=== PATIENT | female | born 1995 | race Caucasian/White ===

== ENCOUNTER 2022-05-05 08:56 | Emergency (ER) | payer OTHER ==
--- NOTE | 2022-05-05 09:37 | ED ---
General Adult HPI - General Chief complaint: Headache Stated complaint: head pressure, sore throat Time Seen by Provider: 05/05/22 09:02 Source: patient, RN notes reviewed Mode of arrival: ambulatory Limitations: no limitations - History of Present Illness Initial comments: This is a 26-year-old female presents emergency Department with chief complaint of fever, headache, pressure, sore throat. Patient states started over the last few days. Patient states she is concerned about also COVID-19. Patient denies any significant vomiting diarrhea she does admit to slight nausea no sick contacts. She did take some Tylenol earlier today which did not help much. Patient's taken no other [id number]-sto-kaqblef cough and cold-like medications. - Related Data Previous Rx's Medication Instructions Recorded Amoxic-Pot Clav 875-125Mg 1 tab PO Q12HR #20 tab 05/05/22 [Augmentin 875-125] Allergies Allergy/AdvReac Type Severity Reaction Status Date / Time No Known Allergies Allergy Verified 05/05/22 09:01 Review of Systems ROS Statement: Those systems with pertinent positive or pertinent negative responses have been documented in the HPI. ROS Other: All systems not noted in ROS Statement are negative. Past Medical History Past Medical History: No Reported History History of Any Multi-Drug Resistant Organisms: None Reported Past Surgical History: No Surgical Hx Reported Past Psychological History: No Psychological Hx Reported Smoking Status: Vaper Past Alcohol Use History: Occasional Past Drug Use History: None Reported General Exam Limitations: no limitations General appearance: alert, in no apparent distress Head exam: Present: atraumatic, normocephalic, normal inspection Eye exam: Present: normal appearance, PERRL, EOMI. Absent: scleral icterus, conjunctival injection, periorbital swelling ENT exam: Present: normal exam, normal oropharynx, mucous membranes moist, TM's normal bilaterally Neck exam: Present: normal inspection, full ROM. Absent: tenderness, meningismus, lymphadenopathy Respiratory exam: Present: normal lung sounds bilaterally. Absent: respiratory distress, wheezes, rales, rhonchi, stridor Cardiovascular Exam: Present: regular rate, normal rhythm, normal heart sounds. Absent: systolic murmur, diastolic murmur, rubs, gallop, clicks GI/Abdominal exam: Present: soft, normal bowel sounds. Absent: distended, tenderness, guarding, rebound, rigid Neurological exam: Present: alert, oriented X3 Course Vital Signs 05/05/22 05/05/22 08:59 09:22 Temperature 99.5 F Pulse Rate 107 H 100 Respiratory 20 18 Rate Blood Pressure 132/88 134/84 O2 Sat by Pulse 99 98 Oximetry Medical Decision Making - Medical Decision Making 26-year-old female presented for fever congestion year pain patient has negative: 19 negative influenza. Patient will G4 pressure infection return parameters were discussed. Patient does have otalgia. - Lab Data Lab Results 05/05/22 05/05/22 Range/Units 09:27 09:27 Coronavirus (PCR) Not Detected (Not Detectd) Influenza Type A RNA Not Detected (Not Detectd) Influenza Type B (PCR) Not Detected (Not Detectd) Disposition Clinical Impression: URI (upper respiratory infection), Otalgia, Fever Disposition: HOME SELF-CARE Condition: Stable Instructions (If sedation given, give patient instructions): Upper Respiratory Infection (ED) Additional Instructions: Please return to the Emergency Department if symptoms worsen or any other concerns. Prescriptions: Amoxic-Pot Clav 875-125Mg [Augmentin 875-125] 1 tab PO Q12HR #20 tab Is patient prescribed a controlled substance at d/c from ED?: No Referrals: Hugh Thorne DO [Primary Care Provider] - 1-2 days Time of Disposition: 10:30
[2022-05-05 09:40] VITALS: RESP 18
[2022-05-05 11:06] VITALS: BP 117/93; PULSE 91; TEMP 101.2
== END 2022-05-05 11:06 | disposition home or self-care (01) ==
LOC: SUPCPDRO 08:56 → EC 08:56
DX: J06.9 Acute upper respiratory infection, unspecified (principal); H92.09 Otalgia, unspecified ear; F17.290 Nicotine dependence, other tobacco product, uncomplicated; Z20.822 Contact with and (suspected) exposure to COVID-19
CPT/HCPCS: 87502; 87635; 99284